=== PATIENT | male | born 1970 | race Caucasian/White ===

== ENCOUNTER 2019-06-19 09:09 | Emergency (ER) | payer MEDICAID ==
--- NOTE | 2019-06-19 10:11 | ED Physician Documentation ---
History of Present Illness - Stated complaint Stated Complaint: SOA/ELEVATED HEART RATE - Chief complaint Chief Complaint: General - History obtained from History obtained from: Patient - Additonal information Additional information: This is a 48-year-old man who presents with complaints that he woke up this morning with respiratory trouble. He was at a democr[employer] last night and his neighbors when he started to feel kind of weird he went and "passed out" and then he woke up and walked home and went to bed. When he woke up this morning he was having some difficulty breathing and he was concerned that he might have been exposed to some sort of toxin. He knows they were smoking marijuana last night and nobody else got sick that he was able to tell. His throat felt really restricted early this morning around 4 AM. He still feels like the voice is hoarse but he is able to swallow. He had a really uneasy feeling this morning. Denies any history of asthma. He is not been coughing. He did have some palpitations but no chest pain. 2 nights ago he was around the same people in his enclosed vehicle when he felt the same type of reaction to just did not get this severe. He is also been a lot of family drama between him and his brother and some things that have been happening on Facebook which has kind of stressed him out. 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 He has no known allergies. Review of Systems Constitutional: denies: Fever Nose: denies: Congestion Throat: denies: Sore throat Cardiac: reports: Palpitations. denies: Chest pain / pressure Respiratory: reports: Dyspnea, Other (Feels like his airway is restricted.) GI: denies: Nausea Skin: denies: Rash Neurologic: denies: Syncope, Headache Psychiatric: denies: Hallucinations Endocrine: reports: Other (He is not diabetic) PD PAST MEDICAL HISTORY - Past Medical History Cardiovascular: None Respiratory: None Endocrine/Autoimmune: None GI: None - Past Surgical History Past Surgical History: Yes - Present Medications Home Medications: Ambulatory Orders Medication Instructions Recorded Confirmed No Known Home Medications 10/12/12 10/12/12 Amoxicillin/Potassium Clav 1 each PO BID #14 tablet 07/23/13 [Augmentin 875-125 Tablet] oxyCODONE/ACET 5/325 [Percocet 5 1 - 2 each PO Q4-6H PRN #15 tablet 07/23/13 mg/325 mg] - Allergies Allergies/Adverse Reactions: Allergies Allergy/AdvReac Type Severity Reaction Status Date / Time No Known Drug Allergies Allergy Verified 06/19/19 09:14 - Social History Does the pt smoke?: No Smoking Status: Never smoker Does the pt drink ETOH?: Yes Does the pt have substance abuse?: No - Immunizations Immunizations are current?: Yes PD ED PE NORMAL - Vitals Vital signs reviewed: Yes - General General: Alert and oriented X 3, No acute distress, Well developed/nourished, Other (Patient has a hoarse voice but when he clears his throat is normal. There is no stridor.) - HEENT HEENT: Atraumatic, PERRL, EOMI, Moist mucous membranes, Pharynx benign, Other (No swelling in the oropharynx or of the tongue. No posterior pharyngeal erythema or edema.) - Neck Neck: Supple, no meningeal sign, No adenopathy, Thyroid normal - Cardiac Cardiac: RRR, No murmur, Strong equal pulses - Respiratory Respiratory: No respiratory distress, Clear bilaterally - Abdomen Abdomen: Normal bowel sounds, Soft, No organomegaly - Derm Derm: Normal color, Warm and dry, No rash - Extremities Extremities: No deformity, No edema - Neuro Neuro: Alert and oriented X 3, manager of network 2-12 intact, No motor deficit, No sensory deficit, Normal speech - Psych Psych: Normal mood, Normal affect Results - Vitals Vitals: Vital Signs - 24 hr 06/19/19 06/19/19 06/19/19 09:16 10:30 12:38 Temperature 36.4 C L Heart Rate 82 72 72 Respiratory 18 18 16 Rate Blood Pressure 164/101 H 153/93 H 148/88 H O2 Saturation 97 95 96 Oxygen O2 Source Room air - EKG (time done) 0925 Rate: Rate (enter#) (74) Rhythm: NSR Intervals: Wide QRS (Nonspecific intraventricular conduction delay.) Ischemia: Normal ST segments Compare to prior EKG: Old EKG unavailable - Labs Labs: Laboratory Tests 06/19/19 06/19/19 06/19/19 10:45 10:45 10:50 WBC 10.6 RBC 4.76 Hgb 14.5 Hct 42.9 MCV 90.1 MCH 30.5 MCHC 33.8 RDW 12.8 Plt Count 317 MPV 8.8 Neut # (Auto) 8.4 H Lymph # (Auto) 1.2 L [place] # (Auto) 0.9 Eos # (Auto) 0.0 Baso # (Auto) 0.0 Absolute Nucleated RBC 0.00 Nucleated RBC % 0.0 Sodium 133 L Potassium 4.1 Chloride 98 L Carbon Dioxide 25 Anion Gap 10.0 BUN 11 Creatinine 0.8 Estimated GFR (MDRD) 103 Glucose 128 H Calcium 9.0 Total Bilirubin 0.6 AST 20 ALT 21 Alkaline Phosphatase 52 Total Protein 7.0 Albumin 4.1 Globulin 2.9 Albumin/Globulin Ratio 1.4 Lipase 32 Urine Color LT. YELLOW Urine Clarity CLEAR Urine pH 6.0 Ur Specific [place] <=1.005 Urine Protein NEGATIVE Urine Glucose (UA) NEGATIVE Urine Ketones NEGATIVE Urine Occult Blood NEGATIVE Urine Nitrite NEGATIVE Urine Bilirubin NEGATIVE Urine Urobilinogen 0.2 (NORMAL) Ur Leukocyte Esterase NEGATIVE Ur Microscopic Review NOT INDICATED Urine Culture Comments NOT INDICATED Urine Opiates Screen NEGATIVE Ur Oxycodone Screen NEGATIVE Urine Methadone Screen NEGATIVE Ur Propoxyphene Screen NEGATIVE Ur Barbiturates Screen NEGATIVE Ur Tricyclics Screen NEGATIVE Ur Phencyclidine Scrn NEGATIVE Ur Amphetamine Screen NEGATIVE U Methamphetamines Scrn NEGATIVE U Benzodiazepines Scrn NEGATIVE Urine Cocaine Screen POSITIVE H U Cannabinoids Screen POSITIVE H Ethyl Alcohol < 5.0 - Rads (name of study) CXR Radiology: EMP read contemporaneously, See rad report (neg acute) PD MEDICAL DECISION MAKING - ED course Complexity details: reviewed results, re-evaluated patient, d/w patient, d/w family ED course: Patient's drug screen was positive for cocaine and marijuana. His alcohol level is less than 5. He repeatedly asked me about screening for toxins in his blood. I do not think any type of hematology results are going to change my management. He denied any suicidal ideation. There is a stress at home but he did not endorse seeing a counselor at this time. I have encouraged him to stay out of the environment that has set this off the past 2 times. This may just be a little local throat irritation or he may even be getting a cold. Follow-up as needed. Departure - Departure Disposition: 01 Home, Self Care Clinical Impression: Laryngitis Intoxication by drug Qualifiers: Complication of substance-induced condition: uncomplicated Qualified Code(s): F19.920 - Other psychoactive substance use, unspecified with intoxication, uncomplicated Condition: Good Instructions: ED Laryngitis Follow-Up: Ivan Joseph [Primary Care Provider] - Comments: I would not avoid the environment that has set the symptoms off the past 2 times. Follow-up with your primary care provider for further concerns. I would consider counseling regarding the family stressors. Discharge Date/Time: 06/19/19 12:38
[2019-06-19 10:54] LABS: BASOPHILS % (AUTO) 0.4 %; EOSINOPHILS % (AUTO) 0.4 %; HGB - HEMOGLOBIN 14.5 g/dL (14.0-18.0); LYMPHOCYTES # (AUTO) 1.2 10^3/uL (1.5-3.5); LYMPHOCYTES % (AUTO) 11.4 %; MEAN CORPUSCULAR HEMOGLOBIN 30.5 pg (27.0-31.0); MEAN CORPUSCULAR HGB CONC 33.8 g/dL (32.0-36.0); MEAN CORPUSCULAR VOLUME 90.1 fL (80.0-94.0); MEAN PLATELET VOLUME 8.8 fL (7.4-11.4); MONOCYTES # (AUTO) 0.9 10^3/uL (0.0-1.0); NEUTROPHILS # (AUTO) 8.4 10^3/uL (1.5-6.6); NEUTROPHILS % (AUTO) 79.3 %; PLT - PLATELET COUNT 317 10^3/uL (130-450); RED BLOOD COUNT 4.76 10^6/uL (4.70-6.10); RED CELL DISTRIBUTION WIDTH 12.8 % (12.0-15.0); WHITE BLOOD COUNT 10.6 x10^3/uL (4.8-10.8)
[2019-06-19 11:03] LABS: MUDS CUTOFF CONCENTRATIONS CUTOFF CONC BELOW:
[2019-06-19 11:08] LABS: BILIRUBIN,URINE NEGATIVE (NEGATIVE); GLUCOSE, URINE (UA) NEGATIVE (NEGATIVE); KETONES,URINE (UA) NEGATIVE (NEGATIVE); LEUKOCYTE ESTERASE, URINE NEGATIVE (NEGATIVE); NITRITE,URINE NEGATIVE (NEGATIVE); OCCULT BLOOD,URINE NEGATIVE (NEGATIVE); PROTEIN,URINE NEGATIVE (NEGATIVE); UROBILINOGEN,URINE 0.2 (NORMAL) E.U./dL (NORMAL)
[2019-06-19 11:09] LABS: CLARITY,URINE CLEAR (CLEAR)
[2019-06-19 11:15] LABS: ALBUMIN 4.1 g/dL (3.2-5.5); ALBUMIN/GLOBULIN RATIO 1.4 (1.0-2.2); ALKALINE PHOSPHATASE 52 IU/L (42-121); ALT ALANINE AMINOTRANSFERASE 21 IU/L (10-60); AST ASPARTATE AMINOTRANSFERASE 20 IU/L (10-42); BILIRUBIN,TOTAL 0.6 mg/dL (0.2-1.0); BUN - BLOOD UREA NITROGEN 11 mg/dL (6-20); CARBON DIOXIDE - CO2 25 mmol/L (21-32); CHLORIDE 98 mmol/L (101-111); CREATININE 0.8 mg/dL (0.6-1.2); GFR - MDRD 103 (>89); GLUCOSE 128 mg/dL (70-100); LIPASE 32 U/L (22-51); SODIUM 133 mmol/L (135-145)
[2019-06-19 11:19] LABS: AMPHETAMINE SCREEN,URINE NEGATIVE (NEGATIVE); BENZODIAZEPINES SCREEN, URINE NEGATIVE (NEGATIVE); COCAINE SCREEN URINE POSITIVE (NEGATIVE); METHADONE SCREEN, URINE NEGATIVE (NEGATIVE); METHAMPHETAMINES SCREEN, URINE NEGATIVE (NEGATIVE); OPIATE SCREEN, URINE NEGATIVE (NEGATIVE); OXYCODONE SCREEN, URINE NEGATIVE (NEGATIVE); PROPOXYPHENE SCREEN, URINE NEGATIVE (NEGATIVE); TRICYCLIC ANTIDEPRESSANT,URINE NEGATIVE (NEGATIVE)
--- NOTE | 2019-06-19 11:49 | XRAY Report ---
Reason: cough Procedure Date: 06/19/2019 Accession Number: [id number] / [id number] Procedure: XR - Chest 2 View X-Ray CPT Code: 00796 Final Report FULL RESULT: EXAM: CHEST RADIOGRAPHY EXAM DATE: 06/19/2019 11:01 AM. CLINICAL HISTORY: Cough. COMPARISON: None. TECHNIQUE: 2 views. FINDINGS: Lungs/Pleura: No focal opacities evident. No pleural effusion. No pneumothorax. Normal volumes. Mediastinum: Heart and mediastinal contours are unremarkable. Other: None. IMPRESSION: Unremarkable 2 views of the chest. RADIA
[2019-06-19 12:39] VITALS: BP 148/88
== END 2019-06-19 12:38 | disposition home or self-care (01) ==
LOC: ED 09:09
DX: F14.120 Cocaine abuse with intoxication, uncomplicated (principal); J04.0 Acute laryngitis
CPT/HCPCS: 36415; 71046; 80053; 80306; 80320; 81001; 81003; 83690; 85025; 87086; 93005; 99284

== ENCOUNTER 2020-07-12 17:10 | Emergency (ER) | payer OTHER, MEDICAID ==
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
[2020-07-12 18:02] VITALS: BP 139/95
== END 2020-07-12 17:36 | disposition home or self-care (01) ==
LOC: ED 17:10
DX: S60.511A Abrasion of right hand, initial encounter (principal); V47.5XXA Car driver injured in collision with fixed or stationary object in traffic accident, initial encounter; Y92.410 Unspecified street and highway as the place of occurrence of the external cause; I10 Essential (primary) hypertension
CPT/HCPCS: 99281; 99282